=== PATIENT | female | born 1975 | race African-American/Black ===

== ENCOUNTER 2022-10-04 19:04 | Emergency (ER) | payer OTHER ==
[2022-10-04 19:12] VITALS: BP 117/77; PULSE 84; RESP 18; TEMP 98.8; BMI 27.3
[2022-10-04] MEDS ORDERED: LOPERAMIDE HCL 1 MG/5 ML UNIT DOSE CUP PO ONE (20:38)
[2022-10-04] MEDS ORDERED: ONDANSETRON *ODT* 4 MG TABLET SL ONE (20:38)
[2022-10-04] MEDS ORDERED: LOPERAMIDE HCL 2 MG CAPSULE ONE (20:40)
== END 2022-10-04 21:43 | disposition home or self-care (01) ==
LOC: JERFT 19:04
DX: A05.9 Bacterial foodborne intoxication, unspecified (principal); R11.2 Nausea with vomiting, unspecified; R19.7 Diarrhea, unspecified
CPT/HCPCS: 99283-25; Q0162